=== PATIENT | male | born 1965 | race African-American/Black ===

== ENCOUNTER 2020-10-14 03:16 | Emergency (ER) | payer BC ==
[~2020-10-14] VITALS: Ht 175.3 cm; Wt 72.0 kg
[2020-10-14] MEDS ORDERED: IBUPROFEN 600MG TABLET PO ONE (03:45)
[2020-10-14] MEDS ORDERED: IBUP-2028 MT (05:20)
[2020-10-14 05:26] VITALS: BP 159/99
== END 2020-10-14 05:26 | disposition home or self-care (01) ==
LOC: ER 03:16
DX: M54.5 Low back pain (principal); M54.2 Cervicalgia; M19.90 Unspecified osteoarthritis, unspecified site; V43.52XA Car driver injured in collision with other type car in traffic accident, initial encounter; Y93.89 Activity, other specified; Y92.488 Other paved roadways as the place of occurrence of the external cause
CPT/HCPCS: 72040; 72100; 99284

== ENCOUNTER 2023-04-19 16:40 | Emergency (ER) | payer BC, MEDICAID ==
[~2023-04-19] VITALS: Ht 177.8 cm; Wt 78.0 kg
[~2023-04-19 16:40] MED LIST: IBUP-2028 MT
[2023-04-19 17:21] VITALS: BP 143/82; PULSE 82; RESP 16; TEMP 97.8; O2SAT 99
[2023-04-19] MEDS ORDERED: TETRACAINE 0.5% OPHTH DROPS 4ML EACHEYE ONE (20:30)
[2023-04-19] MEDS ORDERED: FLUORESCEIN SODIUM 1MG/STRIP EACHEYE NR (20:30)
[2023-04-19] MEDS ORDERED: FLUORESCEIN SODIUM 1MG/STRIP EACHEYE ONE (20:30)
[2023-04-19] MEDS ORDERED: TETRACAINE 0.5% OPHTH DROPS 4ML EACHEYE NR (20:30)
[2023-04-20] MEDS ORDERED: OCUFLX RIGHTEYE (03:01)
[2023-04-20] MEDS ORDERED: VALA100044 MT (03:01)
== END 2023-04-20 04:18 | disposition home or self-care (01) ==
LOC: ER 16:40
DX: B02.9 Zoster without complications (principal)
CPT/HCPCS: 99283